=== PATIENT | female | born 1970 | race Caucasian/White ===

== ENCOUNTER 2024-03-20 10:27 | Emergency (ER) | payer MEDICAID, SELFPAY ==
[2024-03-20 10:35] VITALS: BP 106/70; PULSE 66; RESP 18; TEMP 36.9; O2SAT 97; BMI 25.6
--- NOTE | 2024-03-20 11:43 | XR_ITS ---
Examination: Wrist, left 2 views Technique: Wrist AP,, lateral 2 views Date and time of exam: March 20, 2024 1209 hrs. Indications: Lifting injury to the wrist 2 days ago with wrist pain. Findings: No acute fracture No dislocation No foreign body Impression: No acute fracture
--- NOTE | 2024-03-20 11:43 | XR_ITS ---
Examination: Left hand 2 views Technique one AP lateral and 2 views Exam date and time: May 21, 2023 at 12 0 8:00 PM Indications: Lifting injury to the hand 2 days ago, hand pain. Findings: Moderate juxta-articular bone demineralization No acute fracture No dislocation Impression: No acute fracture
--- NOTE | 2024-03-20 11:43 | PD.EDHAND ---
Upper Extremity Injury RME/HPI General Chief Complaint: Hand/Wrist Problems Stated Complaint: Left wrist pain Time Seen by Provider: 03/20/24 11:27 Arrival date/time: 03/20/24 10:27 This is a 54-year-old female that also comes with her mother with complaints of left wrist pain that started today. Patient states that she was lifting up the walker and she felt like her wrist broke. Patient has no swelling no erythema. Patient denies any past medical history. Related Data Previous Rx's ?Medication ?Instructions ?Recorded albuterol sulfate 90 mcg/actuation 1 - 2 puff inhalation Q6HR PRN 01/14/17 aerosol inhaler (ProAir HFA) WHEEZING #1 inh ibuprofen 600 mg tablet 1 tab PO Q8HR PRN pain #30 tabs 01/14/17 ibuprofen 600 mg tablet 600 mg PO QID PRN pain #10 tabs 03/20/24 Allergies Allergy/AdvReac Type Severity Reaction Status Date / Time No Known Allergies Allergy Verified 05/05/20 17:00 Review of Systems Review of Systems Systems Reviewed: All systems reviewed, normal except as documented Past Medical History Social History SMOKING STATUS: Never smoker SUBSTANCE USE: does not use ALCOHOL: Never Travel History EBOLA RISK: No ED Exam General General appearance: Present alert and in no apparent distress Head Head exam: Present atraumatic Eye Eye exam: Present normal appearance, PERRL and EOMI ENT ENT exam: Present normal exam, normal oropharynx and mucous membranes moist Neck Neck exam: Present normal inspection, full ROM and trachea midline Chest Chest inspection: Present normal inspection and symmetric chest wall rise Respiratory Respiratory exam: Present other (breathing even and unlabored ) Cardiovascular Cardiovascular exam: Present regular rate Abdominal Exam Abdominal exam: Present soft Extremities Exam Extremities exam: Present normal inspection and full ROM Back Exam Back exam: Present normal inspection and full ROM Neurological Exam Neurological exam: Present alert, oriented X3 and CN II-XII intact Psychiatric Psychiatric exam: Present normal affect and normal mood Skin Skin exam: Present warm, dry, intact and normal color Course Quality Measures none Orders Category Date Time Status XR hand LT 2V Stat Exams 03/20/24 11:43 Completed XR wrist LT 2V Stat Exams 03/20/24 11:43 Completed Ibuprofen Tab [Motrin Tab] Med 03/20/24 13:29 Discontinued 600 mg PO X1 ONE Vital Signs Vital signs: Vital Signs Temperature 98.5 F 03/20/24 10:35 Pulse Rate 66 03/20/24 10:35 Respiratory Rate 18 03/20/24 10:35 Blood Pressure 106/70 03/20/24 10:35 Pulse Oximetry (%) 97 03/20/24 10:35 Oxygen Delivery Method Room Air 03/20/24 10:35 Extremity Injury MDM Narrative MDM Narrative:: left hand: Findings: Moderate juxta-articular bone demineralization No acute fracture No dislocation Impression: No acute fracture left wrist: Findings: No acute fracture No dislocation No foreign body Impression: No acute fracture Patient data External records reviewed:: [facility] previous records Clinical information provided by:: patient Social determinants that could affect healthcare access:: none Patient has the following chronic illnesses:: see hpi How is presenting disease/condition affected by chronic disease/condition?: uneffected by Evaluation data The following diagnostics were reviewed and interpreted by me:: radiology exam(s) Lab and/or radiology exams considered but not ordered:: none Interpretation Summary: see note Medications / Prescriptions Medications or Prescriptions considered but not ordered:: none Medication administrations:: Medication Administration History Discontinued Medications Ibuprofen (Ibuprofen Tab 600 Mg Tablet) 600 mg PO X1 ONE Stop: 03/20/24 13:30 Last Admin: 03/20/24 13:57 Dose: 600 mg Documented By: EF see [facility] Consultations Consultation(s) initiated? (list below): No Diagnosis Upper Extremity Injury Differential Diagnosis: sprain and strain of wrist, fracture of wrist and other (contusion ) Most likely diagnosis given after review of the tests above:: wrist contusion Admission Indicated Admission indicated?: not indicated Admission Request Was there a request for admission?: No Disposition Plan Disposition Plan: Discharge Discharge Attestation Discharge Attestation: The patient and all family members were given an opportunity to ask questions and understood the discharge instructions. Discharge instructions specifically effects, indications for sooner follow up or return to the emergency department, and the expected course of current diagnosis. Patient condition: Stable Discharge Plan Plan Patient Disposition: HOME (Self Care) Patient condition on transfer: Stable Prescriptions/Referrals Prescriptions/Med Rec: New ibuprofen 600 mg tablet 600 mg PO QID PRN (Reason: pain) Qty: 10 0RF No Action ibuprofen 600 MG tablet 1 tab PO Q8HR PRN (Reason: pain) Qty: 30 0RF albuterol sulfate [ProAir HFA] 8.5 GM HFA aerosol inhaler 1 - 2 puff Inhalation Q6HR PRN (Reason: WHEEZING) Qty: 1 0RF Rx Instructions: Please give and use spacer Referrals: No Primary/Family,Physician [Primary Care Provider] - In 1 week Problem List Clinical Impression: Pain, wrist Patient/Caregiver Discharge Instructions Discharge Activity: activity as tolerated Education Materials: ED RICE Additional Instructions: Follow-up with primary provider in 1 to 2 days. Come back to the emergency room if symptoms change or worsen. Print Language: Telugu Stand Alone Forms: Carrie Award Info., Patient Portal Info Letter PA/GUSSET STITCHER Supervising Physician PA/GUSSET STITCHER Supervising Physician: LORA
[2024-03-20] MEDS: IBUPROFEN TAB 600 MG TABLET PO (13:57)
== END 2024-03-20 14:17 | disposition home or self-care (01) ==
PROVIDERS: Emergency Provider Emergency Medicine
DX: S69.92XA Unspecified injury of left wrist, hand and finger(s), initial encounter (principal); X50.9XXA Other and unspecified overexertion or strenuous movements or postures, initial encounter
CPT/HCPCS: 73100; 73120; 81001; 81025; 99283; A9270

== ENCOUNTER 2024-07-07 13:27 | Emergency (ER) | payer MEDICAID, SELFPAY ==
[2024-07-07 13:28] VITALS: BMI 26.2
[2024-07-07 13:43] VITALS: BP 122/84; PULSE 77; RESP 16; TEMP 36.9; O2SAT 99
--- NOTE | 2024-07-07 14:06 | XR_ITS ---
Examination: PA chest single view Technique: Upright PA chest single view Exam date and time: July 07, 2024 1440 hrs. Indications: Dizziness today single view Findings: Normal heart size No aspiration pneumonia No pulmonary edema The osseous structures are intact Impression: No active disease
--- NOTE | 2024-07-07 14:06 | EKG_ITS ---
[facility] (Formerly [facility]) Test Date: 2024-07-07 Pat Name: PAPITO RIVERA Department: Room: - Gender: Female [employer] Cutter: : 1970 Requested By: Twyla Saenz ([facility]) [place] Order Number: [id number] Reading MD: Twyla Saenz ([facility]) [place] Measurements Intervals [place] Rate: 73 P: 66 MO: 146 QRS: 47 QRSD: 88 T: 51 QT: 396 QTc: 437 Interpretive Statements SINUS RHYTHM POSSIBLE LEFT ATRIAL ENLARGEMENT [-0.1mV P-WAVE IN V1/V2] POSSIBLE RIGHT VENTRICULAR CONDUCTION DELAY [RSR (QR) IN V1/V2] No previous ECG available for comparison /[id number]/[email or web address]/[id number]
--- NOTE | 2024-07-07 14:06 | XR_ITS ---
Examination: CT brain head without contrast. 2-D sagittal coronal reconstructions Date and time of exam:July 07, 2024 1503 hrs. Indications: Syncopal episode with dizziness today CTDI: vol (mGy):48 DLP: (mGycm):978 Technique: Multiple CT axial sections of the brain have been obtained, 5 mm slice thickness. Contrast has not been administered. 2-D sagittal, coronal reconstructions have been obtained Low dose protocols were performed. One or more of the following dose reduction techniques were used; automated exposure control, adjustment of the mA and/or KV according to patient size, use of iterative reconstruction technique. Findings: No significant ventricular enlargement. Intra-axial or extra-axial hemorrhage density is not seen. No mass effect or midline shift Basal cisterns are not remarkable. Fourth ventricle is midline. Cranial vault intact. Impression: Negative for acute hemorrhage, mass effect or midline shift Advise clinical correlation follow-up accordingly
--- NOTE | 2024-07-07 14:07 | PD.EDRME ---
Rapid Medical Screening Exam RME Arrival date/time: 07/07/24 13:27 This is a 54-year-old female who presents to the emergency department complaints of a near dizziness episode. Reports generalized weakness today. I have greeted and performed a focused initial assessment of this patient. Initial appropriate labs ordered at this time. A comprehensive ED assessment and evaluation of the patient and analysis of all test and completion of medical decision making process will be conducted by additional ED provider. Chief Complaint: Dizziness Time Seen by Provider: 07/07/24 13:44 Vital signs: Vital Signs Temperature 98.5 F 07/07/24 13:43 Pulse Rate 77 07/07/24 13:43 Respiratory Rate 16 07/07/24 13:43 Blood Pressure 122/84 07/07/24 13:43 Pulse Oximetry (%) 99 07/07/24 13:43 Oxygen Delivery Method Room Air 07/07/24 13:43
[2024-07-07 14:31] LABS: Basophils % (Auto) 0 % (0-2.5); Eosinophils # (Auto) 0.1 Thou/mm3 (0.0-0.5); Eosinophils % (Auto) 2 % (0-10); Hematocrit 41.6 % (36.0-46.0); Hemoglobin 13.5 g/dL (12.0-16.0); Immature Granulocytes % (Auto) 0 % (0-0); Immature Granulocytes Auto 0.04 Thou/mm3 (0.00-0.00); Lymphocytes # (Auto) 1.6 Thou/mm3 (1.0-4.8); Lymphocytes % (Auto) 18 % (10-50); Mean Corpuscular HGB Conc 32.5 g/dl (31.0-37.0); Mean Corpuscular Hemoglobin 30.4 pg (25.0-35.0); Mean Corpuscular Volume 94 fL (80-100); Monocytes # (Auto) 0.5 Thou/mm3 (0.0-0.8); Monocytes % (Auto) 5 % (0-12); Neutrophils # (Auto) 6.8 Thou/mm3 (1.8-7.7); Neutrophils % (Auto) 75 % (37-80); Nucleated Red Blood Cell % 0 /100 WBC (0); Platelet Count 269 Thou/mm3 (140-440); RDW Standard Deviation 42.8 fL (36.4-46.3); Red Blood Count 4.44 Miln/mm3 (4.00-5.20); White Blood Count 9.1 Thou/mm3 (3.6-11.0)
[2024-07-07 14:40] LABS: Collection Type, Urine Clean Catch
[2024-07-07 14:51] LABS: Amphetamine/Methamp Scrn,U Negative (Negative); Barbiturate Screen,Urine Negative (Negative); Benzodiazepines Screen,Urine Negative (Negative); Benzoylecgonine Screen, Ur Negative (Negative); Fentanyl Screen,Urine Negative (Negative); Opiate Screen,Urine Negative (Negative); THC Screen,Urine Negative (Negative)
[2024-07-07 14:53] LABS: Alanine Aminotransferase 44 U/L (10-49); Albumin, Serum 4.4 gm/dL (3.5-5.0); Albumin/Globulin Ratio 1.5 (1.2-2.2); Alkaline Phosphatase 75 U/L (46-116); Anion Gap 6 (7-16); Aspartate Amino Transferase 26 U/L (0-34); BUN/Creatinine Ratio 15 Ratio (12-20); Bilirubin,Total 0.3 mg/dL (0.3-1.2); Blood Urea Nitrogen 9 mg/dL (9-23); Calcium 9.2 mg/dL (8.3-10.6); Calcium (Corrected) 9.2 mg/dL (8.5-10.1); Carbon Dioxide 31.8 mMol/L (20.0-31.0); Chloride 106 mMol/L (98-107); Creatinine (Component) 0.6 mg/dL (0.6-1.3); Glucose 115 mg/dL (74-106); Osmolality,Calculated 286 (275-295); Sodium 144 mMol/L (136-145); Total Protein 7.4 gm/dL (5.7-8.2); Troponin I < 0.002 ng/mL (0.0-0.045); eGFR > 60 See Note
[2024-07-07 14:56] LABS: Partial Thromboplastin Time 28.7 Seconds (22.0-36.0); Prothrombin Time 10.9 Seconds (9.0-12.2)
[2024-07-07 16:04] LABS: Bilirubin,Urine Negative (Negative); Blood,Urine Negative (Negative); Clarity,Urine Clear (Clear/Hazy); Color,Urine Colorless (Lt Yel-Yel); Glucose, Urine Negative (Negative); Ketones,Urine Negative (Negative); Leukocyte Esterase,Urine Negative (Negative); Nitrite,Urine Negative (Negative); PH,Urine 6.5 (5.0-7.0); Protein,Urine Negative (Neg - Trace); RBC,Urine < 1 /hpf (0-3); Specific Gravity,Urine 1.007 (1.001-1.035); Squamous Epithelial Cell,Urine < 1 /hpf (0-5); Urobilinogen,Urine Negative mg/dL (0.0-1.0); WBC,Urine < 1 /hpf (0-5)
--- NOTE | 2024-07-07 16:53 | EDNOTE_ITS ---
<Statement entered by Marisol Yap MD - 07/09/24 07:00> As co-signing physician, I was present and available for consult prn. I concur with the plan and care as documented by the midlevel provider. ED Dizzyness RME/HPI General Chief Complaint: Dizziness Stated Complaint: DIZZINESS TODAY Time Seen by Provider: 07/07/24 13:44 Arrival date/time: 07/07/24 13:27 RME / HPI RME / HPI Narrative: 54-year-old female patient with no significant medical history, came in for evaluation regarding dizziness. Onset of symptoms around noon as sudden onset of dizziness while praying that lasted for several minutes. Patient was also noted to be sweaty and diaphoretic. Patient denies any chest pain during that time denies any headache dizziness denies any blurry vision denies any slurring of speech. Denies any other complaints no medication was taken prior to arrival. Related Data Previous Rx's ?Medication ?Instructions ?Recorded albuterol sulfate 90 mcg/actuation 1 - 2 puff inhalati on Q6HR PRN 01/14/17 aerosol inhaler (ProAir HFA) WHEEZING #1 inh ibuprofen 600 mg tablet 1 tab PO Q8HR PRN pain #30 t abs 01/14/17 ibuprofen 600 mg tablet 600 mg PO QID PRN pain #10 t abs 03/20/24 Allergies Allergy/AdvReac Type Severity Reaction Status Date / Time No Known Allergies Allergy Verified 07/07/24 13:28 Review of Systems Review of Systems Narrative Review of Systems: Review of system reviewed and within normal limits except mentioned in HPI ED Exam Narrative Physical exam: VITAL SIGNS: Reviewed. GENERAL APPEARANCE: Alert and interactive, follows commands, no acute distress, HEAD AND FACE: Non-traumatic. ENT: PERRL, pink conjunctivitis, eyelid no trauma, Mucous membrane moist. NECK: Supple, nontender, no nuchal rigidity. CHEST: No tenderness, no crepitus, no paradoxical movement, no retractions. LUNGS: Clear, well ventilated, symmetric, no rales, no wheezing, no ronchi, no stridor, good breath sounds bilaterally. HEART: Regular rate, regular rhythm, no murmur, no gallops. ABDOMEN: Soft, positive bowel sounds, nondistended, no guarding, nontender, no rebound, no masses, RECTAL: Deferred. GENITAL: Deferred. NEUROLOGICAL: Gross motor function intact sensory function intact, Appropriate for age. MUSCULOSKELETAL: low back nontender, full range of motion. EXTREMITIES: Nontender, full range of motion. SKIN: Color pink, dry, no rash, no lacerations, no abrasions, no contusions. LYMPHATICS: Deferred. Course Quality Measures none Orders Category Date Time Status Bedside Blood Glucose NOW Care 07/07/24 14:06 Active Drivematic Machine Operator STAT Care 07/07/24 14:06 Active EKG (ED ONLY) *Do not use* NOW Care 07/07/24 14:[address] head/brain wo con Stat Exams 07/07/24 14:06 Completed EKG (ED Only) Stat Exams 07/07/24 14:06 Draft XR chest 1V portable Stat Exams 07/07/24 14:06 Completed CBC Stat Lab 07/07/24 14:20 Completed Comprehensive Metabolic Panel Stat Lab 07/07/24 14:20 Completed Drug Screen,Urine Stat Lab 07/07/24 14:34 Completed Partial Thromboplastin Time Stat Lab 07/07/24 14:20 Completed Prothrombin Time with INR Stat Lab 07/07/24 14:20 Completed Troponin I Stat Lab 07/07/24 14:20 Completed Urinalysis Stat Lab 07/07/24 14:34 Completed Urine Culture Stat Lab 07/07/24 14:34 Received Vital Signs Vital signs: Vital Signs Temperature 98.5 F 07/07/24 13:43 Pulse Rate 77 07/07/24 13:43 Respiratory Rate 16 07/07/24 13:43 Blood Pressure 122/84 07/07/24 13:43 Pulse Oximetry (%) 99 07/07/24 13:43 Oxygen Delivery Method Room Air 07/07/24 13:43 Dizziness MDM Narrative MDM Narrative:: 55-year-old female patient with no significant medical history, came in for evaluation regarding dizziness. Onset of symptoms around noon as sudden onset of dizziness while praying that lasted for several minutes. Patient was also noted to be sweaty and diaphoretic. Patient denies any chest pain during that time denies any headache dizziness denies any blurry vision denies any slurring of speech. Denies any other complaints no medication was taken prior to arrival. CT scan of the head came back unremarkable. Chest x-ray also came back unremarkable. Laboratory workup including urinalysis, came back normal. Patient also tested negative for drug test. Troponin is also normal. EKG showed normal sinus rhythm, ventricular rate of 73 bpm, no ST segment elevation or depression noted. There was no recurrence of dizziness or similar episodes while waiting in the emergency room for more than 2 hours. Patient appears nontoxic and hemodynamically stable. Patient discharged home and instructed to follow-up with primary care provider in 24 to 48 hours. Instructed to return to the emergency department immediately if worsening of symptoms Patient data External records reviewed:: None Clinical information provided by:: patient and family Social determinants that could affect healthcare access:: none Patient has the following chronic illnesses:: None How is presenting disease/condition affected by chronic disease/condition?: no chronic disease Evaluation data The following diagnostics were reviewed and interpreted by me:: lab results, radiology exam(s) and EKG tracing(s) Lab and/or radiology exams considered but not ordered:: None Interpretation Summary: See results in MDM Medications / Prescriptions Medications or Prescriptions considered but not ordered:: None Medication administrations:: None Consultations Consultation(s) initiated? (list below): No Diagnosis Dizziness Differential Diagnosis: orthostatic hypotension and cerebrovascular accident Most likely diagnosis given after review of the tests above:: Dizziness Admission Indicated Admission indicated?: not indicated Admission Request Was there a request for admission?: No Disposition Plan Disposition Plan: Discharge Discharge Attestation Discharge Attestation: The patient and all family members were given an opportunity to ask questions and understood the discharge instructions. Discharge instructions specifically effects, indications for sooner follow up or return to the emergency department, and the expected course of current diagnosis. Patient condition: Stable Discharge Plan Plan Patient Disposition: HOME (Self Care) Disposition Comment: Stable Prescriptions/Referrals Prescriptions/Med Rec: No Action ibuprofen 600 MG tablet 1 tab PO Q8HR PRN (Reason: pain) Qty: 30 0RF albuterol sulfate [ProAir HFA] 8.5 GM HFA aerosol inhaler 1 - 2 puff Inhalation Q6HR PRN (Reason: WHEEZING) Qty: 1 0RF Rx Instructions: Please give and use spacer ibuprofen 600 mg tablet 600 mg PO QID PRN (Reason: pain) Qty: 10 0RF Referrals: No Primary/Family,Physician [Primary Care Provider] - In 1 week Problem List Clinical Impression: Dizziness Patient/Caregiver Discharge Instructions Discharge Activity: activity as tolerated Education Materials: ED Dizziness, Uncertain Cause Additional Instructions: Thank you for the opportunity for serving you today. You are stable for discharged . You are advised to: Follow-up with your PCP in 1 to 2 days Return to ED for worsening of symptoms Increase oral fluids Print Language: Cook Islander Stand Alone Forms: Carrie Award Info., Patient Portal Info Letter PA/SUPPOSITORY MOLDING MACHINE OPERATOR Supervising Physician PA/SUPPOSITORY MOLDING MACHINE OPERATOR Supervising Physician: MD Fracisco
== END 2024-07-07 18:25 | disposition home or self-care (01) ==
PROVIDERS: Nurse Practitioner Primary Care; Emergency Provider Emergency Medicine
DX: R42 Dizziness and giddiness (principal)
CPT/HCPCS: 36415; 70450; 71045; 80053; 80307; 81001; 84484; 85025; 85610; 85730; 87086; 93005; 99284